=== PATIENT | male | born 1945 | race Caucasian/White ===

== ENCOUNTER 2022-05-23 11:25 | Outpatient (RCR) | payer MEDICARE, OTHER, SELFPAY | END 2022-05-23 23:59 | disposition home or self-care (01) | LOC: CCIC 11:25 | PROVIDERS: PCP Physician Assistant; Visit Provider Nurse Practitioner Family | DX: C07 Malignant neoplasm of parotid gland (principal) | CPT/HCPCS: 99212; 99214 ==

== ENCOUNTER 2022-06-19 13:59 | Outpatient (RCR) | payer MEDICARE, OTHER, SELFPAY ==
[2022-06-19] MEDS: SODIUM CHLORIDE 0.9 % (FLUSH) 10 ML SYRINGE IVF (14:11)
[2022-06-19] MEDS: HEPARIN 500 UNIT/5 ML SYRINGE IVF (14:11)
== END 2022-06-23 23:59 | disposition home or self-care (01) ==
LOC: CCIC 13:59
PROVIDERS: PCP Physician Assistant; Visit Provider Internal Medicine Hematology & Oncology
DX: C07 Malignant neoplasm of parotid gland (principal)
CPT/HCPCS: J1642

== ENCOUNTER 2022-08-08 10:15 | Outpatient (RCR) | payer MEDICARE, OTHER, SELFPAY ==
[2022-07-23] MEDS: SODIUM CHLORIDE 0.9 % (FLUSH) 10 ML SYRINGE IVF (10:40)
[2022-07-23] MEDS: HEPARIN 500 UNIT/5 ML SYRINGE IVF (10:40)
[2022-08-08 10:10] LABS: Basophils Absolute Auto 0.01 K/uL (0.00-0.30); Basophils Percent Auto 0.2 % (0.0-3.0); Eosinophils Absolute Auto 0.05 K/uL (0.00-0.50); Eosinophils Percent Auto 1.1 % (0.0-7.0); Hematocrit 44.7 % (37.0-53.0); Hemoglobin* 14.9 gm/dL (13.5-17.5); Immature Granulocytes Abs Auto 0.02 K/uL (0.00-0.30); Lymphocytes Percent Auto 17.3 % (20-44); Mean Corpuscular HGB Conc 33 gm/dL (32-36); Mean Corpuscular Hemoglobin 31 pg (26-34); Mean Corpuscular Volume 94 fL (80-100); Monocytes Percent Auto 10.8 % (0.0-11.0); Neutrophils Absolute Auto 3.24 K/uL (1.7-7.0); Neutrophils Percent Auto 70.2 % (42.0-72.0); Platelet Count* 132 K/uL (140-440); RDW Coefficient of Variation % 14.1 % (11.5-15.5); Red Blood Count 4.74 m/uL (4.30-5.90); White Blood Count* 4.62 K/uL (4.50-11.00)
[2022-08-08 10:17] LABS: Slide Review Reflex No
[2022-08-08 10:32] LABS: Albumin* 4.7 g/dL (3.3-5.0)
[2022-08-08 10:33] LABS: Chloride* 106 mmol/L (96-114); Sodium* 141 mmol/L (135-149)
[2022-08-08 10:35] LABS: Aspartate Amino Transferase* 27 U/L (12-35); Bilirubin Total* 0.8 mg/dL (0.1-1.5); Carbon Dioxide* 25 mmol/L (20-32); Creatinine* 1.5 mg/dL (0.5-1.5); Estimated Glomerular Filt Rate 48 ml/min
[2022-08-08 10:36] LABS: Alanine Aminotransferase* 25 U/L (4-50); Alkaline Phosphatase* 118 U/L (40-150); Blood Urea Nitrogen* 25 mg/dL (7-30); Calcium* 9.8 mg/dL (8.4-10.6); Glucose* 114 mg/dL (60-115); Total Protein* 8.3 g/dL (6.0-8.3)
--- NOTE | 2022-10-15 12:15 | URNOTE ---
Received request for prior auth for Injectafer (J1439). Per Hudson Crandall at [facility], this is not the preferred medication. Received new order for Infed (J1750). Per Hudson Crandall at [facility], this does not require prior authorization.
== END 2023-01-19 23:59 | disposition home or self-care (01) ==
LOC: CCIC 10:15
PROVIDERS: PCP Physician Assistant; Visit Provider Internal Medicine Hematology & Oncology
DX: C07 Malignant neoplasm of parotid gland (principal); C08.9 Malignant neoplasm of major salivary gland, unspecified
CPT/HCPCS: 36415; 80053; 85025; 99211; 99212; 99213; 99214; J1642

== ENCOUNTER 2022-11-13 07:30 | Outpatient (RCR) | payer MEDICARE, OTHER, SELFPAY | END 2022-11-13 09:49 | disposition home or self-care (01) | PROVIDERS: PCP Physician Assistant; Visit Provider Physician Assistant | DX: I89.0 Lymphedema, not elsewhere classified (principal); Z51.89 Encounter for other specified aftercare | CPT/HCPCS: 97110; 97140; 97162; 97166; X5282 ==

== ENCOUNTER 2023-02-20 15:16 | Outpatient (CLI) | payer MEDICARE, OTHER, SELFPAY ==
--- NOTE | 2023-02-20 15:30 | CRLHL7_ITS ---
For Patients: As a result of the Century Cures Act, medical imaging exams and procedure reports are released immediately into your electronic medical record. You may view this report before your referring provider. If you have questions, please contact your health care provider. 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 History of a left total parotidectomy. History of chemotherapy and radiation treatment. Exam is being performed for restaging. TECHNIQUE: Patient received 12.5 millicuries of 18 FDG (18 fluorodeoxyglucose) intravenously. PET-CT imaging has been performed from the mid skull to mid thigh level at [address] images have been obtained for attenuation correction and localization only. Blood glucose level: 93 mg/dL. COMPARISON: PET-CT dated 05/16/2022. FINDINGS: Within the chest no abnormal uptake is identified in the mediastinum or hilar regions. The lungs demonstrate no significant abnormal uptake. There is apical scarring identified on the left most compatible post radiation changes. Less uptake of the radiotracer is identified in this region on today`s PET-CT. No suspicious infiltrates or masses are seen. Calcified granuloma left lung base noted. Calcified left hilar lymph nodes noted. Extensive vascular calcification noted. The chest wall and axilla demonstrates no significant abnormal uptake. The neck demonstrates no significant abnormal uptake. Postsurgical change for left parotidectomy and left neck lymphadenectomy is noted. No residual hypermetabolic mass or regional lymph nodes are seen. Right neck is unremarkable. Skull base is unremarkable. Liver and spleen demonstrate no abnormal uptake. Some mild uptake along the mid lower esophagus is identified which is likely a benign etiology. The pancreas and bilateral adrenal glands demonstrate no significant abnormal uptake. Mild physiologic left adrenal activity noted. Retrocrural region retroperitoneum demonstrate no abnormal uptake. The iliac aleida chain and groin demonstrate no significant abnormal uptake. There are small bilateral lymph nodes in the groin region without significant abnormal uptake. There is prominent physiologic bowel and ureteric activity. Multiple bilateral renal cysts are noted which appear stable. Prostate remains enlarged. No suspicious skeletal lesions are seen. IMPRESSION: 1. No significant abnormal uptake is identified to suggest residual viable tumor or recurrent disease. 2. Posttreatment changes identified along the left neck and left apex of the lung. 3. Other PET-CT findings as detailed above. Dictated by Zohaib Hager MD @ 02/26/2023 8:27:48 AM (Electronically Signed)
== END 2023-02-20 15:17 | disposition home or self-care (01) ==
LOC: RAD 15:18
PROVIDERS: PCP Physician Assistant; Visit Provider Radiology Radiation Oncology
DX: C07 Malignant neoplasm of parotid gland (principal)
CPT/HCPCS: 78815; A9552

== ENCOUNTER 2023-09-04 14:33 | Outpatient (CLI) | payer MEDICARE, OTHER, SELFPAY ==
--- NOTE | 2023-09-04 14:45 | PE_ITS ---
[facility] [address] [address] Phone:?[phone] Fax:?[phone] Referring Physician Information: Florencia Arita NP [address] [facility] [address] Phone:?[phone] Fax:?[phone] Patient:Gabriel Alfred.O.B:?1945 Sex:?Male Phone:?[phone] [facility] MRN:?[id number] Exam Date:?09/04/2023 EXAM: PET/CT VERTEX TO THIGHS, CANCER RESTAGING CLINICAL INFORMATION: Parotid cancer. TECHNICAL INFORMATION: Helical acquisition of data was obtained from the vertex to the thighs with reconstruction of 3.75 mm thick images at 3.[address] data was used for attenuation correction. PET scanning was performed through the same anatomic range 60 minutes following administration of 12.21 mCi of 18-FDG delivered intravenously. The patient's glucose at the time of the injection was 95 mg/dL. PET, CT and PET/CT fusion images are interpreted using a computer viewing workstation. PET, CT and PET/CT fusion images were archived and saved in the patient's permanent medical record. COMPARISON: PET-CT from 02/20/2023. INTERPRETATION: Head and Neck: There are no abnormal hypermetabolic foci within the head or neck. There is physiologic uptake in the intracranial soft tissues. Chest: There is persistent hypermetabolism (SUVmax = 4.66) in the distal esophagus, in the context of a small hiatal hernia. There are no other abnormal hypermetabolic foci within the chest. No suspicious lung nodules or masses detected on this free-breathing exam. Calcified granulomata occupy the left lung and hilum. No lymphadenopathy detected. Abdomen and Pelvis: There are no abnormal hypermetabolic foci within the abdomen or pelvis. There is physiologic excretion of radiotracer in the urine and bowel. There also is increased FDG uptake at the colorectal junction (Se 2 Im 303) with a maximum SUV of 16.63, indeterminate for physiologic/excretory uptake versus mucosal disease. Skeleton, Musculature, and Integument: No abnormal hypermetabolic foci within the skeleton. No robbie osteoblastic or osteolytic disease. CONCLUSION: 1. No recurrent parotid tumor or aleida/distant metastasis. 2. Persistent FDG uptake at the distal esophagus may reflect reflux esophagitis, but correlation with upper endoscopy should be considered, if not already performed, so as to exclude a neoplastic etiology. 3. Similarly, colorectal activity may reflect physiologic excretory uptake but correlation with sigmoidoscopy/colonoscopy should be considered, if not recently performed, so as to exclude a neoplastic etiology. Electronically signed on 09/05/2023 11:31:00 AM by Evangelista Ferreira M.D.
== END 2023-09-04 14:34 | disposition home or self-care (01) ==
LOC: RAD 14:33
PROVIDERS: PCP Student in an Organized Health Care Education/Training Program; Visit Provider Nurse Practitioner
DX: C07 Malignant neoplasm of parotid gland (principal)
CPT/HCPCS: 78815; A9552

== ENCOUNTER 2025-05-25 08:43 | Outpatient (CLI) | payer MEDICARE, OTHER, SELFPAY ==
--- NOTE | 2025-05-25 09:15 | CRLHL7_ITS ---
For Patients: As a result of the Century Cures Act, medical imaging exams and procedure reports are released immediately into your electronic medical record. You may view this report before your referring provider. If you have questions, please contact your health care provider. INDICATION: Esophageal dysphagia TECHNIQUE: Modified barium swallow. Fluoroscopic time 91 seconds. FINDINGS/IMPRESSION: Minimal spontaneous laryngeal penetration without aspiration. Slight decreased clearance of the vallecula and piriformis sinuses. No obstruction. Dictated by Everardo Nolasco MD @ 05/25/2025 11:39:32 AM (Electronically Signed)
== END 2025-05-25 08:44 | disposition home or self-care (01) ==
LOC: RAD 08:45
PROVIDERS: PCP Student in an Organized Health Care Education/Training Program; Visit Provider Student in an Organized Health Care Education/Training Program
DX: R13.19 Other dysphagia (principal)
CPT/HCPCS: 74230; 92611